=== PATIENT | female | born 1950 | race Caucasian/White ===

== ENCOUNTER 2016-07-22 19:10 | Emergency (ER) | payer MEDICARE, OTHER | END 2016-07-22 21:20 | disposition home or self-care (01) | LOC: ER 19:10 | DX: E86.0 Dehydration (principal); E78.5 Hyperlipidemia, unspecified; J44.9 Chronic obstructive pulmonary disease, unspecified; I10 Essential (primary) hypertension; F17.210 Nicotine dependence, cigarettes, uncomplicated; Z90.49 Acquired absence of other specified parts of digestive tract; Z79.899 Other long term (current) drug therapy | CPT/HCPCS: 96360 ==